=== PATIENT | female | born 1995 | race Two or more races ===

== ENCOUNTER 2018-01-02 17:10 | Emergency (ER) | payer MEDICAID, OTHER ==
[~2018-01-02] VITALS: Ht 167.6 cm; Wt 54.4 kg
[2018-01-02 17:15] VITALS: BP 137/84
== END 2018-01-02 18:31 | disposition home or self-care (01) ==
LOC: ER 17:12
DX: S09.90XA Unspecified injury of head, initial encounter (principal); V49.49XA Driver injured in collision with other motor vehicles in traffic accident, initial encounter; Y93.89 Activity, other specified; Y99.8 Other external cause status; Y92.89 Other specified places as the place of occurrence of the external cause
CPT/HCPCS: 70450; 96372